=== PATIENT | female | born 1930 | race Caucasian/White ===

== ENCOUNTER → 2016-05-31 | Outpatient (CLI) | payer OTHER ==
[~2016-05-31] MED LIST: ARICEPT5 MG; COUMADIN4 MG; COUMADIN6 MG; DILTIAZEM ER240 M1; DILTIAZEM ER240 MG PO; DONEPEZIL HCL10 MG PO; FUROSEMIDE20 MG PO; HYDROCHLOROTHIA25 MG PO; LEVAQUIN500 MG PO; LEVOTHYROXINE150 MCG PO; LOPRESSOR 25 MG25 MG; LOPRESSOR 50 MG50 MG PO; METOPROLOL TAR100 MG PO; METOPROLOL TART25 MG PO; PRESERVISION A1 EACH; QUINAPRIL HCL40 MG PO; SYNTHROID 100100 MCG; TEMAZEPAM15 MG PO; VIT D3 PO; WARFARIN SODIUM6 MG PO
[2016-05-31 14:50] LABS: HEMOGLOBIN 13.8 gm/dl (12.3-15.3); RED BLOOD COUNT 4.76 M/UL (4.00-5.10)
[2016-05-31 15:04] LABS: BUN/CREATININE RATIO 19 (0-10)
== END ==
LOC: LAB 14:07
PROVIDERS: Internal Medicine Interventional Cardiology
DX: Z01.812 Encounter for preprocedural laboratory examination (principal); Z88.8 Allergy status to other drugs, medicaments and biological substances; Z91.040 Latex allergy status; Z95.0 Presence of cardiac pacemaker
CPT/HCPCS: 36415; 80048; 85025; 85610

== ENCOUNTER → 2016-06-01 | Outpatient (CLI) | payer OTHER | END | disposition home or self-care (01) | LOC: CATH 06:33 | DX: Z45.010 Encounter for checking and testing of cardiac pacemaker pulse generator [battery] (principal); I49.5 Sick sinus syndrome; I48.91 Unspecified atrial fibrillation; I50.30 Unspecified diastolic (congestive) heart failure; Z88.7 Allergy status to serum and vaccine; Z91.040 Latex allergy status; Z79.02 Long term (current) use of antithrombotics/antiplatelets; Z79.899 Other long term (current) drug therapy; Z88.8 Allergy status to other drugs, medicaments and biological substances; I25.10 Atherosclerotic heart disease of native coronary artery without angina pectoris; E78.5 Hyperlipidemia, unspecified | CPT/HCPCS: C1786; J2250; J3010; J3370; J7040; J7070 ==